=== PATIENT | female | born 1985 ===

== ENCOUNTER 2021-04-03 12:50 | Outpatient (CLI) | payer BC ==
[2021-04-03 22:45] LABS: SARS-CoV-2 PCR by NAA Not Detected (NotDetected)
== END 2021-04-03 12:51 | disposition home or self-care (01) ==
LOC: CSHLAB 12:50
PROVIDERS: ATTEND Obstetrics & Gynecology
DX: Z20.822 Contact with and (suspected) exposure to COVID-19 (principal)
CPT/HCPCS: U0003; U0005

== ENCOUNTER 2021-04-07 19:00 | Inpatient (IN) | payer BC, MEDICAID ==
[2021-04-07] MEDS ORDERED: Diphenoxylate HCl/Atropine Tablet PO PRN (19:14)
[2021-04-07] MEDS ORDERED: Lidocaine 1% (PF) 30 ML VIAL SC PRN (19:14)
[2021-04-07] MEDS ORDERED: Methylergonovine 0.2 MG/ML VIAL IM PRN (19:14)
[2021-04-07] MEDS ORDERED: Misoprostol 200 MCG TAB PR PRN (19:14)
[2021-04-07] MEDS ORDERED: Ondansetron PF 4 MG/2 ML Vial IVP PRN (19:14)
[2021-04-07] MEDS ORDERED: Carboprost 250 MCG/ML AMP IM PRN (19:14)
[2021-04-07] MEDS ORDERED: Promethazine HCl 25 MG/ML VIAL IM PRN (19:14)
[2021-04-07] MEDS ORDERED: Ibuprofen 800 MG TAB PO PRN (19:14)
[2021-04-07] MEDS ORDERED: HYDROcodone/Acetaminophen 5/325 mg Tablet PO PRN (19:14)
[2021-04-07] MEDS ORDERED: hydrALAZINE 20 MG/ML VIAL SLOW IVP PRN (19:14)
[2021-04-07] MEDS ORDERED: NS w/ Oxytocin 30 units 500 ML IV SCH (19:15)
[2021-04-08] MEDS ORDERED: NS w/ Oxytocin 30 units 500 ML IVPB SCH (06:00)
[2021-04-08] MEDS ORDERED: Bupivacaine PF 0.5% 30 ML VIAL ONE (08:00)
[2021-04-08] MEDS ORDERED: Bupivacaine 0.25% HCL 30 ML VIAL ONE (08:00)
[2021-04-08] MEDS: Misoprostol 100 MCG TAB PO SCH ×2 (08:16→11:44)
[2021-04-08 09:28] LABS: Hemoglobin 10.6 g/dL (12.0-15.5); Mean Corpuscular HGB CONC 31.5 g/dL (32.0-36.0); Mean Corpuscular Hemoglobin 26.8 pg (27.0-33.0); Mean Corpuscular Volume 85.1 fl (81.6-98.3); Mean Platelet Volume 11.9 fl (7.4-10.4); Platelet Count 291 10x3/uL (150-450); RBC Distribution Width 14.4 % (11.5-14.5); Red Blood Cell (RBC) Count 3.96 10x6/uL (3.90-5.03)
[2021-04-08 10:00] VITALS: BMI 36.0
[2021-04-08 10:01] LABS: Hep B Surf Ag Non-Reactive S/CO (NonReactive)
[2021-04-08 10:02] LABS: Syphilis Antibody Nonreactive (Nonreactive); Syphilis Antibody Index 0.08 S/CO (<1.00 Non-Reactive)
[2021-04-08 10:08] LABS: HBSAg Index 0.24 S/CO (0-0.99)
[2021-04-08 11:36] LABS: HIV (1/2) Antibody/Antigen Non-Reactive (NonReactive); HIV 1/2 INDEX 0.22 S/CO (<1.00)
[2021-04-08] MEDS ORDERED: Fentanyl 2 mcg/Bup 0.1% Cadd 100 ML ONE (11:56)
[2021-04-08] MEDS ORDERED: Naloxone HCl 0.4 mg/ml Vial IVP PRN ×4 (13:36→16:23)
[2021-04-08] MEDS ORDERED: Acetaminophen 325 MG TAB PO PRN (13:36)
[2021-04-08] MEDS ORDERED: Promethazine HCl 25 MG/ML VIAL IM PRN ×2 (13:36→16:23)
[2021-04-08] MEDS ORDERED: diphenhydrAMINE 50 MG/ML VIAL IVP PRN ×2 (13:36→16:23)
[2021-04-08] MEDS ORDERED: Lactated Ringer's 500 ML IV PRN (13:36)
[2021-04-08] MEDS ORDERED: Hydrocerin (Eucerin) Cream 120 gm Jar TOP PRN ×2 (13:36→16:23)
[2021-04-08] MEDS ORDERED: Ondansetron PF 4 MG/2 ML Vial IVP PRN ×2 (13:36→16:23)
[2021-04-08] MEDS ORDERED: ePHEDrine Sulfate 50 MG/10 ML VIAL SLOW IVP PRN (13:36)
[2021-04-08] MEDS ORDERED: Communication Order-Pharmacy FS SCH ×2 (13:45→16:30)
[2021-04-08] MEDS ORDERED: Fentanyl 2 mcg/Bupivacaine 0.1% Cassette 100 ML EPIDURAL SCH (13:45)
[2021-04-08] MEDS ORDERED: Bicitra 30 ML UDCUP ONE (15:30)
[2021-04-08] MEDS ORDERED: Morphine PF 10 MG/10 ML VIAL ONE (15:41)
[2021-04-08] MEDS ORDERED: Oxytocin 10 UNITS/ML VIAL ONE (15:43)
[2021-04-08] MEDS ORDERED: PHENYLEPHRINE-NS 100 MCG/ML 10 ML SYRINGE ONE (15:43)
[2021-04-08] MEDS ORDERED: Dexamethasone 4 mg/ml Vial ONE (15:44)
[2021-04-08] MEDS ORDERED: Ondansetron PF 4 MG/2 ML Vial ONE (15:44)
[2021-04-08] MEDS ORDERED: Promethazine HCl 25 MG SUPP PR PRN (16:23)
[2021-04-08] MEDS ORDERED: Ketorolac Tromethamine 30 MG/ML VIAL IVP PRN (16:23)
[2021-04-08] MEDS ORDERED: Naloxone HCl 0.4 mg/ml Vial IV PRN (16:23)
[2021-04-08] MEDS ORDERED: Simethicone Chewable 80 MG TAB PO PRN (17:27)
[2021-04-08] MEDS ORDERED: Lanolin Ointment 7 GM TUBE TOP PRN (17:27)
[2021-04-08] MEDS ORDERED: Boostrix 0.5 ML (Tdap) VIAL IM ONE (17:27)
[2021-04-08] MEDS ORDERED: diphenhydrAMINE 25 MG CAP PO PRN (17:27)
[2021-04-08] MEDS ORDERED: Bisacodyl 10 MG SUPP PR PRN (17:27)
[2021-04-08] MEDS ORDERED: Misoprostol 200 MCG TAB PR PRN (17:33)
[2021-04-08] MEDS ORDERED: Misoprostol 100 MCG TAB ONE (17:41)
[2021-04-08] MEDS ORDERED: HYDROmorphone 2 MG/ML VIAL SLOW IVP PRN (20:21)
[2021-04-08] MEDS ORDERED: Meperidine HCl/PF 25 MG/ML VIAL SLOW IVP PRN (20:21)
[2021-04-08] MEDS ORDERED: Fentanyl 100 MCG/2 ML VIAL SLOW IVP PRN (20:21)
[2021-04-08] MEDS ORDERED: HYDROmorphone 0.5 MG/0.5 ML SYRINGE SLOW IVP SCH (20:45)
[2021-04-08] MEDS ORDERED: HYDROmorphone 0.5 MG/0.5 ML SYRINGE SLOW IVP PRN (20:45)
[2021-04-09] MEDS: Acetaminophen 500 MG TAB PO PRN (00:42)
[2021-04-09] MEDS: Docusate 100 MG CAP PO SCH ×3 (00:42→21:28)
[2021-04-09] MEDS ORDERED: HYDROcodone/Acetaminophen 5/325 mg Tablet PO PRN (04:30)
[2021-04-09 05:17] LABS: Hemoglobin 9.5 g/dL (12.0-15.5); Mean Corpuscular HGB CONC 31.5 g/dL (32.0-36.0); Mean Corpuscular Volume 85.8 fl (81.6-98.3); Mean Platelet Volume 11.7 fl (7.4-10.4); Platelet Count 256 10x3/uL (150-450); RBC Distribution Width 14.3 % (11.5-14.5); Red Blood Cell (RBC) Count 3.52 10x6/uL (3.90-5.03); White Blood Cell (WBC) Count 18.5 10x3/uL (3.5-10.5)
[2021-04-09] MEDS: Misoprostol 200 MCG TAB PO SCH ×4 (07:52→08:15)
[2021-04-09] MEDS: Prenatal Vitamin 1 TAB PO SCH (08:27)
[2021-04-09] MEDS: HYDROcodone/Acetaminophen 5/325 mg Tablet PO PRN ×4 (08:28→20:03)
[2021-04-09] MEDS: Ibuprofen 800 MG TAB PO SCH (21:28)
[2021-04-10] MEDS: Ibuprofen 800 MG TAB PO SCH (05:20)
[2021-04-10] MEDS: Docusate 100 MG CAP PO SCH (08:02)
[2021-04-10] MEDS: Prenatal Vitamin 1 TAB PO SCH (08:02)
[2021-04-10] MEDS: Acetaminophen 500 MG TAB PO PRN (08:04)
[2021-04-10 08:07] VITALS: BP 108/62; TEMP 97.8
== END 2021-04-10 13:00 | disposition home or self-care (01) | DRG 788 ==
LOC: CSHLD 04-08 07:31 → CSHPP 04-08 21:00 → CSHPED 04-08 21:01
PROVIDERS: ADMIT Obstetrics & Gynecology; ATTEND Obstetrics & Gynecology
PROC: 10D00Z1 Extraction of Products of Conception, Low, Open Approach (ICD-10-PCS; principal; 2021-04-08)
DX: O44.53 Low lying placenta with hemorrhage, third trimester (principal); Z3A.39 39 weeks gestation of pregnancy; Z37.0 Single live birth; O36.63X0 Maternal care for excessive fetal growth, third trimester, not applicable or unspecified
CPT/HCPCS: 36415; 51702; 74018; 85027; 86780; 86850; 86900; 86901; 87340; 87389; 88307; J0690; J1100; J1170; J2274; J2405; J2590; S0020